=== PATIENT | male | born 1995 | race Caucasian/White ===

== ENCOUNTER 2020-09-02 16:41 | Outpatient (CLI) | payer OTHER ==
[2020-09-03 03:55] LABS: SARS-CoV-2 PCR by NAA Not Detected (NotDetected)
== END 2020-09-02 16:42 | disposition home or self-care (01) ==
LOC: CSHLAB 16:41
PROVIDERS: ATTEND Orthopaedic Surgery
DX: Z20.822 Contact with and (suspected) exposure to COVID-19 (principal); I25.9 Chronic ischemic heart disease, unspecified; J45.909 Unspecified asthma, uncomplicated
CPT/HCPCS: 87635; U0003; U0005

== ENCOUNTER 2020-09-07 13:41 | Outpatient (CLI) | payer OTHER | END 2020-09-07 13:42 | disposition home or self-care (01) | LOC: CSHULT 13:41 | PROVIDERS: ATTEND Orthopaedic Surgery | DX: I25.9 Chronic ischemic heart disease, unspecified (principal); J45.909 Unspecified asthma, uncomplicated | CPT/HCPCS: 93306; 94060; 94760 ==